=== PATIENT | male | born 1965 | race Caucasian/White ===

== ENCOUNTER 2020-08-05 13:18 | Emergency (ER) | payer OTHER, SELFPAY ==
[2020-08-05 13:30] VITALS: BP 127/77; PULSE 92; RESP 18; O2SAT 95; BMI 25.8
--- NOTE | 2020-08-05 13:38 | ECG_ITS ---
[facility] Test Date: 2020-08-05 Pat Name: Dk Ramos Department: Room: Gender: Male [employer] Work[employer]: : 1965 Requested By: Taylor Turner Order Number: [id number] Sara MD: Jose Alfredo Murrell M.D. Measurements Intervals [place] Rate: 80 P: 55 MN: 157 QRS: 68 QRSD: 104 T: 47 QT: 375 QTc: 435 Interpretive Statements SINUS RHYTHM POSSIBLE LEFT ATRIAL ENLARGEMENT [-0.1mV P WAVE IN V1/V2] NONSPECIFIC T-WAVE ABNORMALITY No previous ECG available for comparison Electronically Signed On 08-05-2020 17:04:18 CDT by Jose Alfredo Murrell M.D. [id number] f
--- NOTE | 2020-08-05 13:39 | W.ED.WEAKNES ---
HPI - Weakness General: Chief complaint: Weakness Stated complaint: WEAKNESS, NAUSEA Time Seen by Provider: 08/05/20 13:31 Source: patient Mode of arrival: EMS Limitations: no limitations History of Present Illness: HPI Narrative: Patient is a 54-year-old male who presents to the ED today for evaluation following an episode of weakness and nausea while at work. He states he works at [employer] and the area he was working was very warm. He was also wearing a heavy apron and admittingly had not drank much water the first half of the shift. Also states it is hard to breath wearing his mask. Patient states he began feeling tingling to his hands and feet and felt like his blood sugars were low-patient is not a diabetic. He states he felt sweaty, weak, and nauseous. He began drinking water and Mountain Dew and attempts to help his symptoms. Patient denies chest pain, shortness of breath, difficulty breathing, palpitations. No abdominal pain. No fevers. MD Complaint: generalized weakness, tingling and difficulty walking (nausea, sweaty) Onset (ago): hour(s) Duration: improved Location: other (bilateral hands/feet) Severity: mild Quality: tingling Associated symptoms: Reports no associated symptoms and nausea; Denies chest pain, chills, fever(s), headache(s), syncope or vomiting Review of Systems Const: Denies: fever(s), chills, body aches, fatigue or malaise Eyes: Denies: change in vision or blurry vision Card: Denies: chest pain, palpitations, irregular heart rhythm, edema, lightheadedness, syncope or pre-syncope Resp: Denies: dyspnea GI: Reports: nausea; Denies: abdominal pain, vomiting or diarrhea Musc: Denies: neck pain, back pain or joint pain Neuro: Reports: sensory changes (reports tingling to bilateral hands/feet); Denies: headache(s), numbness in extremities or weakness in extremities Physical Exam Const: COMMON NORMALS: no acute distress, average body habitus, patient oriented x3, no limitations, healthy appearing, alert and well nourished GENERAL APPEARANCE: cooperative ORIENTATION/CONSCIOUSNESS: Yes awake, Yes oriented to person, Yes oriented to place and Yes oriented to time HENMT: COMMON NORMALS: normocephalic and atraumatic HEAD & SCALP: normocephalic and atraumatic Eye: COMMON NORMALS: Equal, round and reactive pupils present and EOMs intact bilaterally GENERAL EYE: appearance normal, both eyes and all related structures PUPIL: Yes Equal, round and reactive pupils present Resp: COMMON NORMALS: normal respiratory effort and clear to auscultation bilaterally AUSCULTATION: clear to auscultation bilaterally Cardio: COMMON NORMALS: regular rate and regular rhythm RATE: regular rate RHYTHM: regular rhythm GI: COMMON NORMALS: Normal to inspection, nondistended, normoactive bowel sounds present, Soft to palpation, non-tender, No hepatosplenomegaly present and no masses PALPATION: Yes Soft to palpation and Yes No hepatosplenomegaly present Extremity: GENERAL: Yes normal exam except as noted Neuro: CHECO COMA SCALE: document GCS findings [place] coma scale eye opening: Spontaneous [place] coma scale verbal response: Orientated [place] coma scale motor response: Obey commands Che[place] coma scale total score: 15 COMMON NORMALS: patient oriented x3, CN's II-XII intact bilaterally, moves all extremities, no focal motor deficits and no sensory deficits noted SENSORIUM/ORIENTATION: Yes alert, Yes oriented to person, Yes oriented to place and Yes oriented to time COORDINATION/BALANCE: [id number] test normal SPEECH: speech normal MOTOR EXAM: 5/5 motor strength present throughout COORDINATION: [id number] test normal Skin: COMMON NORMALS: no rashes or lesions noted GENERAL SKIN EXAM: no rashes or lesions noted Course Vital Signs: Vital signs: Vital Signs Temperature 97.8 F 08/05/20 13:40 Pulse Rate 87 08/05/20 13:40 Respiratory Rate 17 08/05/20 13:40 Blood Pressure 127/77 08/05/20 13:40 Pulse Oximetry 100 08/05/20 13:40 MDM - Weakness MDM Narrative: Medical decision making narrative: Patient feels much better during his stay here. His vital signs are stable. EKG is normal. Labs (CBC, CMP, CPK, troponin) are nonconcerning. Potassium is mildly low at 3.3. He will be given a dose of oral potassium prior to discharge. Patient feels stable to go home. Recommend rest over the next 24 to 48 hours. Hydrate. Return to ED precautions were discussed. Lab Data: Labs: Lab Results 08/05/20 08/05/20 08/05/20 Range/Units 14:25 14:25 14:25 WBC 11.5 H (4.0-10.0) 10^3/ uL RBC 5.19 (4.1-5.3) 10^6/u L Hgb 15.2 (11.7-16.6) g/dL Hct 45.2 (42.0-52.0) % MCV 87.1 (80-94) fL MCH 29.3 (28.0-34.0) pg MCHC 33.6 (30.0-36.0) g/dL RDW 12.6 (12.1-15.1) % Plt Count 217 (130-400) 10^3/c mm MPV 11.9 H (7.4-10.4) fL Neut % (Auto) 84.0 % Lymph % (Auto) 7.0 % [place] % (Auto) 7.6 % Eos % (Auto) 0.3 % Baso % (Auto) 0.8 % Neut # (Auto) 9.68 H (1.8-7.7) 10^3/u L Lymph # (Auto) 0.8 (0.8-4.8) 10^3/u L [place] # (Auto) 0.9 (0.2-0.9) 10^3/u L Eos # (Auto) 0.0 (0.0-0.8) 10^3/u L Baso # (Auto) 0.1 (0.0-0.1) 10^3/u L Nucleated RBC % (a uto) 0 % Nucleated RBCs # 0.0 /100WBC Sodium 134 L (136-145) mmol/L Potassium 3.3 L (3.5-5.1) mmol/L Chloride 97 L (98-107) mmol/L Carbon Dioxide 24 (22-29) mmol/L Anion Gap 16.3 (5-19) BUN 15 (6-20) mg/dL Creatinine 0.8 (0.7-1.2) mg/dL GFR Calculation 100.4 (90-130) mL/min Glucose 92 (65-115) mg/dL Calculated Osmolal ity 278 L (285-295) mOsm/k g Calcium 9.0 (8.5-10.5) mg/dL Total Bilirubin 0.6 (0.15-1.2) mg/dL AST 20 (0-40) U/L ALT 16 (0-41) U/L Alkaline Phosphata se 66 (40-130) IU/L Creatine Kinase 187 (39-308) U/L Troponin T Gen 5 n g/L 6 (0-15) ng/L Total Protein 7.3 (6.6-8.7) g/dL Albumin 4.7 (3.5-5.2) g/dL Globulin 2.6 (1.3-4.6) g/dL EKG Data^: EKG 1: EKG interpretation date: 08/05/20 EKG interpretation time: 14:01 Interpretation: Sinus rhythm Rate [address] elevation or depression changes noted Signed off by Dr. Spivey Discharge Plan Discharge Patient Disposition: Home Clinical Impression: Heat exhaustion Qualifiers: Encounter type: initial encounter Qualified Code(s): T67.5XXA - Heat exhaustion, unspecified, initial encounter Condition: Stable Prescriptions: No Action No Known Home Medications RF: 0 Discharge Orders: Discharge ED (Routine); Ordered 08/05/20 Ordered By: Taylor Turner Patient Instructions: Heat Exhaustion - Adult, Heat Exhaustion (ED) Coding Level of Care Code ED Pediatric Pathologist for Claire Fwd Exam Comprehensive
[2020-08-05 13:40] VITALS: BP 127/77; PULSE 87; RESP 17; TEMP 36.6; O2SAT 100
--- NOTE | 2020-08-05 14:09 | PC.NURSE ---
pt to MRI with shc at this time
[2020-08-05] MEDS: promethazine 25 mg/mL SDV 1 mL 50 MG IM (14:30)
[2020-08-05 14:40] VITALS: RESP 18
[2020-08-05 14:41] LABS: Basophils # 0.1 10^3/uL (0.0-0.1); Basophils % 0.8 %; Eosinophils % 0.3 %; Hematocrit 45.2 % (42.0-52.0); Hemoglobin 15.2 g/dL (11.7-16.6); Lymphocytes # 0.8 10^3/uL (0.8-4.8); Mean Corpuscular HGB Conc 33.6 g/dL (30.0-36.0); Mean Corpuscular Hemoglobin 29.3 pg (28.0-34.0); Mean Corpuscular Volume 87.1 fL (80-94); Mean Platelet Volume 11.9 fL (7.4-10.4); Monocytes # 0.9 10^3/uL (0.2-0.9); Monocytes % 7.6 %; Neutrophils # 9.68 10^3/uL (1.8-7.7); Nucleated Red Blood Cells % 0 %; Platelet Count 217 10^3/cmm (130-400); Red Blood Count 5.19 10^6/uL (4.1-5.3); Red Cell Distribution Width 12.6 % (12.1-15.1); White Blood Count 11.5 10^3/uL (4.0-10.0)
[2020-08-05 15:08] LABS: Alanine Aminotransferase 16 U/L (0-41); Albumin Level 4.7 g/dL (3.5-5.2); Alkaline Phosphatase 66 IU/L (40-130); Anion Gap 16.3 (5-19); Aspartate Amino Transferase 20 U/L (0-40); Blood Urea Nitrogen 15 mg/dL (6-20); Carbon Dioxide 24 mmol/L (22-29); Chloride 97 mmol/L (98-107); Creatine Phosphokinase 187 U/L (39-308); Globulin 2.6 g/dL (1.3-4.6); Glomerular Filtration Rate 100.4 mL/min (90-130); Glucose 92 mg/dL (65-115); Osmolality Calculated 278 mOsm/kg (285-295); Potassium 3.3 mmol/L (3.5-5.1); Sodium 134 mmol/L (136-145); Total Bilirubin 0.6 mg/dL (0.15-1.2); Total Protein 7.3 g/dL (6.6-8.7)
[2020-08-05 15:09] LABS: Troponin T (5th) Once 6 ng/L (0-15)
[2020-08-05] MEDS: potassium chloride ER 20 mEq Tablet 40 MEQ PO (15:41)
[2020-08-05 15:51] VITALS: RESP 18
== END 2020-08-05 15:51 | disposition home or self-care (01) ==
PROVIDERS: Emergency Provider Physician Assistant
DX: T67.5XXA Heat exhaustion, unspecified, initial encounter (principal); X30.XXXA Exposure to excessive natural heat, initial encounter; Y99.0 Civilian activity done for income or pay
CPT/HCPCS: 80053; 82550; 84484; 85025; 93005; 96372; 99283; J2550

== ENCOUNTER 2022-02-11 14:07 | Outpatient (CLI) | payer OTHER, SELFPAY ==
--- NOTE | 2022-02-11 14:30 | MR_ITS ---
WS: [id number] MRI HEAD WITHOUT CONTRAST TECHNIQUE: Sagittal T1, T2 axial, T2 axial FLAIR, axial and coronal T1 images, axial susceptibility w eighted imaging, axial diffusion weighted images, and coronal T2 images were obtained. CLINICAL INFORMATION: R41.3 - Other amnesia COMPARISON: None. FINDINGS: No evidence of restricted diffusion to suggest acute ischemia. Ventricular system and basal cisterns are patent. Mild small vessel changes. Small vessel changes in the donald. Moderate parenchymal volume loss. Incidental cavum septum pellucidum and vergae. Normal posterior fossa. Normal vascular flow voi ds at the skull base. No extra-axial fluid collections. No evidence of mass or mass effect. Retention cyst LEFT maxillary sinus. Normal posterior nasopharynx. Mastoid air cells are well aerated . Incidental partially empty sella. No hemosiderin on the susceptibly weighted images. Normal optic chiasm and pituitary infundibulum. Normal cavernous sinuses and Meckel's cave. Moderate symmetric atrophy temporal lobes and hippocampal formations. MR/MR head wo con* [id number] IMPRESSION: 1. No evidence of restricted diffusion to suggest acute ischemia. 2. Mild small vessel changes. Moderate parenchymal volume loss. 3. Incidental cavum septum pellucidum and vergae. 4. Retention cyst LEFT maxillary sinus measuring 2.3 cm. Mastoid air cells are well aerated. 5. Moderate symmetric atrophy temporal lobes and hippocampal formations. 6. No hemosiderin on the susceptibly weighted images.
== END 2022-02-11 14:08 | disposition home or self-care (01) ==
LOC: RAD 14:08
PROVIDERS: PCP Family Medicine; Visit Provider Specialist
DX: R41.3 Other amnesia (principal); J34.1 Cyst and mucocele of nose and nasal sinus
CPT/HCPCS: 70551; 82607; 85651

== ENCOUNTER 2023-03-02 15:35 | Outpatient (CLI) | payer OTHER, SELFPAY ==
--- NOTE | 2023-03-02 16:00 | MR_ITS ---
WS: [id number] MRI BRAIN WITHOUT CONTRAST HISTORY: G30.9 - Alzheimer's disease, unspecified COMPARISON: 02/11/2022 TECHNIQUE: Diffusion imaging, multiplanar T1, T2 and FLAIR imaging obtained. No evidence for restricted diffusion to suggest acute ischemia. No hemorrhage. Mild small vessel ischemic changes. There are additional small vessel ischemic changes in the donald. N o interval development of an acute infarct since the prior study. Taking into consideration's the sli ght difference in positioning of the head I do not believe there is a significant increase in the sma ll vessel ischemic disease. Ventricles are mildly prominent. Incidental note is made of a cavum of septum pellucidum et vergae. Moderate symmetric atrophy. There is also moderate atrophy of the hippocampal formations and temporal lobes. There does appear to be slightly greater atrophy as compared to 02/11/2022. Increased CSF elizabeth rounding the hippocampi. Empty sella turcica. No inferior displacement of the cerebellar tonsils. Dural venous sinuses and [place] demonstrate no abnormality on this unenhanced studies. Paranasal sinuses: Mucous retention cyst in the LEFT maxillary sinus. Mastoid air cells: Normal. Calvarium and scalp: Intact. IMPRESSION: 1. No acute infarct. 2. Mild small vessel ischemic disease is similar to the prior study. No prior infarcts. 3. Moderate parenchymal volume loss is similar to prior studies. 4. Moderate atrophy of the hippocampal formations. There does appear to be slightly greater CSF surr ounding the hippocampi as compared to the prior study suggesting progression of atrophy. 5. Mild ventriculomegaly.
== END 2023-03-02 15:36 | disposition home or self-care (01) ==
LOC: RAD 15:35
PROVIDERS: PCP Family Medicine; Visit Provider Specialist
DX: G30.9 Alzheimer's disease, unspecified (principal); F02.80 Dementia in other diseases classified elsewhere, unspecified severity, without behavioral disturbance, psychotic disturbance, mood disturbance, and anxiety; I67.89 Other cerebrovascular disease; G31.89 Other specified degenerative diseases of nervous system; G93.89 Other specified disorders of brain
CPT/HCPCS: 70551

== ENCOUNTER 2024-03-26 18:06 | Emergency (ER) | payer OTHER, SELFPAY ==
[2024-03-26 18:09] VITALS: BP 156/95; PULSE 66; RESP 18; TEMP 36.7; O2SAT 100
--- NOTE | 2024-03-26 18:18 | CTR_ITS ---
PROCEDURE INFORMATION: Exam: CT Head Without Contrast Exam date and time: 03/26/2024 6:19 PM Age: 58 years old Clinical indication: Stroke-like symptoms; Generalized weakness; Additional info: Acute stroke symptoms TECHNIQUE: Imaging protocol: Computed tomography of the head without contrast. Radiation optimization: All CT scans at this facility use at least one of these dose optimization techniques: automated exposure control; mA and/or kV adjustment per patient size (includes targeted exams where dose is matched to clinical indication); or iterative reconstruction. Other technique: STROKE PROTOCOL was implemented. COMPARISON: MR head wo con* [id number] 03/02/2023 4:24 PM RADIATION DOSE METRICS: Total DLP (mGy-cm): 1098.08 FINDINGS: Brain: Mild volume loss of the brain is unchanged. No acute infarct. No acute hemorrhage. No midline shift or mass effect. Cerebral ventricles: There is diffuse prominence of the ventricles with bifrontal horn diameter of 5.7 cm larger than previous measurement of 5.2 cm. Cavum septum pellucidum et vergae is unchanged. Pituitary gland and sella: Unchanged partially empty sella. Paranasal sinuses: No significant inflammation. No fluid levels. Mastoid air cells: No significant inflammation. Bones: No acute fracture. Soft tissues: Unremarkable. CT/CT head thrombolytic [id number] IMPRESSION: 1. No evidence of acute ischemia. 2. Progressive diffuse ventriculomegaly disproportionate to the overall degree of cerebral volume loss raising the possibility of normal pressure hydrocephalus in the appropriate clinical setting. ASSESSMENT: ASPECTS ([place] Stroke Program Early CT Score) is 10.
--- NOTE | 2024-03-26 18:20 | XRR_ITS ---
PROCEDURE INFORMATION: Exam: XR Chest Exam date and time: 03/26/2024 6:36 PM Age: 58 years old Clinical indication: Other: Confusion; Additional info: Weakness TECHNIQUE: Imaging protocol: Radiologic exam of the chest. Views: 1 view. COMPARISON: CT angio headneck* [id number] 03/26/2024 6:29 PM FINDINGS: Lungs: Mild hypoinflation of the lungs. Minimal bibasilar atelectasis. No focal infiltrate. Pleural spaces: No pleural effusion. No pneumothorax. Heart/Mediastinum: Mild apparent cardiomegaly likely reflecting magnification from hypoinflation. Bones/joints: Unremarkable. XR/XR chest 1V portable [id number] IMPRESSION: No acute findings.
--- NOTE | 2024-03-26 18:20 | CTR_ITS ---
PROCEDURE INFORMATION: Exam: CTA Head With Contrast, Arteriography Exam date and time: 03/26/2024 6:29 PM Age: 58 years old Clinical indication: Stroke-like symptoms; Altered mental status/memory loss; Additional info: Possible stroke TECHNIQUE: Imaging protocol: Computed tomographic angiography of the head with contrast. Exam focused on the arteries. 3D rendering (Not supervised by radiologist): MIP and/or 3D reconstructed images were created by the technologist. Radiation optimization: All CT scans at this facility use at least one of these dose optimization techniques: automated exposure control; mA and/or kV adjustment per patient size (includes targeted exams where dose is matched to clinical indication); or iterative reconstruction. Contrast material: OMNI 350; Contrast volume: 100 ml; Contrast route: INTRAVENOUS (IV); COMPARISON: CT head thrombolytic [id number] 03/26/2024 6:19 PM RADIATION DOSE METRICS: Total DLP (mGy-cm): 543.62 FINDINGS: ANTERIOR CIRCULATION: Right internal carotid artery: Intracranial segment is patent with no significant stenosis. No aneurysm. Right middle cerebral artery: No occlusion or significant stenosis. No aneurysm. Right anterior cerebral artery: No occlusion or significant stenosis. No aneurysm. Anterior communicating artery: Suspected 2 mm superiorly projecting aneurysm at the level of the anterior communicating artery on series 5, image 273. Left internal carotid artery: Intracranial segment is patent with no significant stenosis. No aneurysm. Left middle cerebral artery: No occlusion or significant stenosis. No aneurysm. Left anterior cerebral artery: No occlusion or significant stenosis. No aneurysm. POSTERIOR CIRCULATION: Right vertebral artery: No occlusion or significant stenosis. No aneurysm. Left vertebral artery: No occlusion or significant stenosis. No aneurysm. Basilar artery: No occlusion or significant stenosis. No aneurysm. Right posterior cerebral artery: The right OUTSIDE SALES REPRESENTATIVE has anatomic variant origin. Left posterior cerebral artery: No occlusion or significant stenosis. No aneurysm. Brain: No definite mass, mass effect, or midline shift. Cerebral ventricles: Diffuse ventriculomegaly again present disproportionate to the overall degree of cerebral volume loss. Paranasal sinuses: Scattered paranasal sinus mucosal thickening, without air-fluid level present. Bones/joints: No acute fracture. Soft tissues: Unremarkable. PROCEDURE INFORMATION: Exam: CTA Neck With Contrast Exam date and time: 03/26/2024 6:29 PM Age: 58 years old Clinical indication: Stroke-like symptoms; Altered mental status/memory loss; Additional info: Possible stroke TECHNIQUE: Imaging protocol: Computed tomographic angiography of the neck with contrast. Exam focused on the cervical segments of the vasculature. 3D rendering (Not supervised by radiologist): MIP and/or 3D reconstructed images were created by the technologist. Radiation optimization: All CT scans at this facility use at least one of these dose optimization techniques: automated exposure control; mA and/or kV adjustment per patient size (includes targeted exams where dose is matched to clinical indication); or iterative reconstruction. Contrast material: OMNI 350; Contrast volume: 100 ml; Contrast route: INTRAVENOUS (IV); COMPARISON: CT head thrombolytic [id number] 03/26/2024 6:19 PM RADIATION DOSE METRICS: Total DLP (mGy-cm): 543.62 FINDINGS: Right common carotid artery: No stenosis. No dissection or occlusion. Right internal carotid artery: No stenosis of the extracranial segment. No dissection or occlusion. Right external carotid artery: No visible occlusion. Left common carotid artery: No stenosis. No dissection or occlusion. Left internal carotid artery: No stenosis of the extracranial segment. No dissection or occlusion. Left external carotid artery: No visible occlusion. Right vertebral artery: No stenosis. No dissection or occlusion. Left vertebral artery: No stenosis. No dissection or occlusion. Soft tissues: No significant soft tissue swelling. Bones/joints: No acute fracture. CT/CT angio headneck* [id number] IMPRESSION: 1. No acute large vessel occlusion identified. 2. 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 IMPRESSION: No occlusion or significant stenosis. REFERENCES: NASCET CRITERIA. The degree of stenosis in the cervical segment of the internal carotid artery is based on NASCET criteria. Normal is no stenosis. Mild is less than 50% stenosis. Moderate is 50-69% stenosis. Severe is 70% to 99% stenosis. Total occlusion is no detectable patent lumen.
--- NOTE | 2024-03-26 18:21 | ED_ITS ---
HPI - Altered Mental Status 2 General: Chief Complaint: Altered Mental Status Stated Complaint: ams, confusion History of Present Illness: 58-year-old man who presents the emergen cy room by ambulance and with police. Apparently he was stopped tonight for a driving infraction. At that point he demonstrated some erratic driving behavior according to the police. He was having difficulty with word finding and some sort of word salad. There was concern that he might have had a stroke. He does not have any visual deficits. No slurred speech just difficulty with word finding. No focal motor deficits. No chest pain. No shortness of breath. Related Data Home Medications Medication Instructions Recorded Confirmed arginine 1,000 mg-B12 16.6 1 tab PO BID 11/01/23 03/08/24 mcg-folic acid 66.6 mcg-B6 3.3 mg tablet (L-Arginine [facility]) Previous Rx's Medication Instructions Recorded citalopram 40 mg tablet 40 mg PO DAILY #30 tabs 11/01/23 galantamine 4 mg tablet 4 mg PO BID #60 tabs 11/01/23 memantine 10 mg tablet 10 mg PO BID #60 tabs 11/01/23 quetiapine 100 mg tablet See Rx Instructions .Route 02/28/24 .COMPLEX #120 tabs Allergies Allergy/AdvReac Type Severity Reaction Status Date / Time No Known Allergies Allergy Verified 11/01/23 15:27 Review of Systems 2 Narrative: Constitutional symptoms: Negative except as documented in HPI. Skin symptoms: Negative except as documented in HPI. Eye symptoms: Negative except as documented in HPI. ENMT symptoms: Negative except as documented in HPI. Respiratory symptoms: Negative except as documented in HPI. Cardiovascular symptoms: Negative except as documented in HPI. Gastrointestinal symptoms: Negative except as documented in HPI. Genitourinary symptoms: Negative except as documented in HPI. Musculoskeletal symptoms: Negative except as documented in HPI. Neurologic symptoms: Negative except as documented in HPI. Psychiatric symptoms: Negative except as documented in HPI. Endocrine symptoms: Negative except as documented in HPI. PFSH ED 2 PFSH: Social History Smoking and tobacco/nicotine status: never used tobacco/nicotine Physical Exam 2 Narrative: General: Alert, no acute distress. Skin: Warm, dry. Head: Normocephalic, atraumatic. Neck: Supple, trachea midline. Eye: Extraocular movements are intact. Ears, nose, mouth and throat: mucosa moist. Cardiovascular: Regular, Normal peripheral perfusion. Respiratory: Lungs are clear to auscultation, respirations are non-labored, breath sounds are equal, Symmetrical chest wall expansion. Gastrointestinal: Soft, Nontender, Non distended Musculoskeletal: Normal ROM, no deformity. Neurological: Alert and oriented, patient has difficulty with word finding and expressing himself. When asking how many fingers I am holding up he gets the answers wrong. No obvious visual field deficits. After discussing this with his apparently this is his baseline Psychiatric: Cooperative, appropriate mood & affect. Course 2 Vital Signs: Vital signs: Vital Signs Temperature 98.0 F 03/26/24 18:09 Pulse Rate 66 03/26/24 20:44 Respiratory Rate 12 03/26/24 20:44 Blood Pressure 158/81 03/26/24 20:44 Pulse Oximetry 98 03/26/24 20:44 Oxygen Delivery Me thod Room Air 03/26/24 20:44 MDM - Altered Mental Status Medical Decision Making Medical decision making: Differential diagnosis for patient with focal neurologic deficit(s) includes but not limited to and based on the above HPI, review of systems and physical exam: ischemic stroke, hemorrhagic stroke and embolic stroke secondary to atrial fibrillation), TIA, Henley's palsey, metabolic encephalopathy with previous stroke. Orders placed to evaluate differential diagnosis based on the above differential, HPI and physical exam Consultation: I spoke with Dr. Sanchez initially before I spoke with the and she had recommended tPA if these were new symptoms. Concerned that they might be because he had been at work. However after discussing this with the and then after Dr. Sanchez had reviewed the chart and who the patient was it was discovered that this is his baseline and that the worsening in his word salad was secondary to his anxiety after being pulled over. is very concerned about his driving and this is not the first time she has expressed this concern. EKG: Time 1840. Rate 68. Normal sinus rhythm, No ST-T changes, no ectopy, normal WA & QRS intervals, This was reviewed and interpreted by myself the ER physician at 1845 Lab Review: Laboratory results were reviewed and interpreted by myself the emergency room physician. Lab work is unremarkable. No leukocytosis. No anemia. No renal failure. Urinalysis is negative. No drugs. No alcohol. CT head: No acute intracranial process. no intracranial hemorrhage, no evidence of infarct. no evidence of acute fracture.This was reviewed and interpreted by myself the ER physician. CTA of the head and neck: No obvious stenosis or occlusions are identified. No mass. This was reviewed and interpreted by myself the emergency room physician. I also reviewed the radiology report. Chest x-ray: No acute process. No infiltrate. No pneumothorax. This was reviewed and interpreted by myself the emergency room physician. I also reviewed the radiology report. I reviewed the patient's medical record. Reexamination: Patient remained stable. No increased work of breathing. No altered mental status. No focal motor deficits. Patient is at his baseline. His speech has improved some now that he is not as anxious. I discussed with him and that I cannot take his license away but I strongly urged that he cease from driving at this point. agrees. Assessment and plan: Speech difficulty Alzheimer's disease - Discharged home - Discussed findings and plan with patient. Answered any questions. - All laboratory values were reviewed and interpreted personally by myself, the ER physician - All imaging was reviewed and interpreted personally by myself, the ER physician. - Evaluation and treatment of this problem were appropriate in the emergency setting Lab Data 03/26/24 18:42 03/26/24 18:[address] 03/26/24 18:18 IMPRESSION: 1. No evidence of acute ischemia. 2. Progressive diffuse ventriculomegaly disproportionate to the overall degree of cerebral volume loss raising the possibility of normal pressure hydrocephalus in the appropriate clinical setting. ASSESSMENT: ASPECTS ([place] Stroke Program Early CT Score) is 10. Chest X-Ray 03/26/24 18:20 IMPRESSION: No acute findings. Head/Neck CTA 03/26/24 18:20 IMPRESSION: 1. No acute large vessel occlusion identified. 2. 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 IMPRESSION: No occlusion or significant stenosis. REFERENCES: NASCET CRITERIA. The degree of stenosis in the cervical segment of the internal carotid artery is based on NASCET criteria. Normal is no stenosis. Mild is less than 50% stenosis. Moderate is 50-69% stenosis. Severe is 70% to 99% stenosis. Total occlusion is no detectable patent lumen. Laboratory Results WBC 7.38 10^3/uL (3.29-11.43) 03/26/24 18:42 RBC 5.15 10^6/uL (3.85-5.65) 03/26/24 18:42 Hgb 15.20 g/dL (11.27-16.99) 03/26/24 18:42 Hct 45.1 % (37-53) 03/26/24 18:42 MCV 87.6 fl (82-101) 03/26/24 18:42 MCH 29.5 pg (27-33) 03/26/24 18:42 MCHC 33.7 g/dL (30-55) 03/26/24 18:42 RDW 12.9 % (12.1-15.1) 03/26/24 18:42 Plt Count 260 10^3/cmm (157-399) 03/26/24 18:42 MPV 11.0 fL (7.4-10.4) H 03/26/24 18:42 Neut % (Auto) 58.1 % 03/26/24 18:42 Lymph % (Auto) 29.7 % 03/26/24 18:42 [place] % (Auto) 9.1 % 03/26/24 18:42 Eos % (Auto) 1.5 % 03/26/24 18:42 Baso % (Auto) 1.5 % 03/26/24 18:42 Neut # (Auto) 4.29 10^3/uL (1.8-7.7) 03/26/24 18:42 Lymph # (Auto) 2.2 10^3/uL (0.8-4.8) 03/26/24 18:42 [place] # (Auto) 0.7 10^3/uL (0.2-0.9) 03/26/24 18:42 Eos # (Auto) 0.1 10^3/uL (0.0-0.8) 03/26/24 18:42 Baso # (Auto) 0.1 10^3/uL (0.0-0.1) 03/26/24 18:42 Nucleated RBC % (auto) 0 % 03/26/24 18:42 Nucleated RBCs # 0.0 /100WBC 03/26/24 18:42 PT 12.80 SECONDS (12.1-14.9) 03/26/24 18:42 INR 0.93 (0.8-1.2) 03/26/24 18:42 APTT 27.6 SECONDS (23.9-36.7) 03/26/24 18:42 Sodium 139 mmol/L (136-145) 03/26/24 18:42 Potassium 3.6 mmol/L (3.5-5.1) 03/26/24 18:42 Chloride 102 mmol/L (98-107) 03/26/24 18:42 Carbon Dioxide 25 mmol/L (22-29) 03/26/24 18:42 Anion Gap 15.6 (5-19) 03/26/24 18:42 BUN 18 mg/dL (6-20) 03/26/24 18:42 Creatinine 0.9 mg/dL (0.7-1.2) 03/26/24 18:42 GFR Calculation 86.4 mL/min (90-130) L 03/26/24 18:42 Glucose 90 mg/dL (65-115) 03/26/24 18:42 Calculated Osmolality 289 mOsm/kg (285-295) 03/26/24 18:42 Calcium 9.4 mg/dL (8.5-10.5) 03/26/24 18:42 Total Bilirubin 0.5 mg/dL (0.15-1.2) 03/26/24 18:42 AST 25 U/L (0-40) 03/26/24 18:42 ALT 22 U/L (0-41) 03/26/24 18:42 Alkaline Phosphatase 78 U/L (40-130) 03/26/24 18:42 Ammonia 22 umol/L (16-60) 03/26/24 18:42 Total Protein 7.7 g/dL (6.6-8.7) 03/26/24 18:42 Albumin 4.8 g/dL (3.5-5.2) 03/26/24 18:42 Globulin 2.9 g/dL (1.3-4.6) 03/26/24 18:42 Urine Color Yellow (Yellow) 03/26/24 20:14 Urine Appearance Clear (CLEAR) 03/26/24 20:14 Urine pH 6.5 (5-7) 03/26/24 20:14 Ur Specific [place] 1.060 (1.005-1.030) H 03/26/24 20:14 Urine Protein Negative (Negative) 03/26/24 20:14 Urine Glucose (UA) Negative (Normal) 03/26/24 20:14 Urine Ketones Negative (Negative) 03/26/24 20:14 Urine Blood Negative (Negative) 03/26/24 20:14 Urine Nitrate Negative (Negative) 03/26/24 20:14 Urine Bilirubin Negative (Negative) 03/26/24 20:14 Urine Urobilinogen 1.0 mg/dL (Negative) 03/26/24 20:14 Ur Leukocyte Esterase Negative (Negative) 03/26/24 20:14 Urine RBC 0-2 /hpf (0-2) 03/26/24 20:14 Urine WBC 0-5 /hpf (0-5) 03/26/24 20:14 Ur Squamous Epith Cells 0-5 /hpf (0-5) 03/26/24 20:14 Amorphous Sediment Not Reportable 03/26/24 20:14 Urine Bacteria None seen /hpf (NONE) 03/26/24 20:14 Hyaline Casts 0.40 /lpf 03/26/24 20:14 Urine Sperm 1+ /hpf 03/26/24 20:14 Urine Opiates Screen Negative ng/mL (Negative) 03/26/24 20:14 Ur Barbiturates Screen Negative ng/mL (Negative) 03/26/24 20:14 Ur Phencyclidine Scrn Negative ng/mL (Negative) 03/26/24 20:14 Ur Amphetamines Screen Negative ng/mL (Negative) 03/26/24 20:14 U Benzodiazepines Scrn Negative ng/mL (Negative) 03/26/24 20:14 Urine Cocaine Screen Negative ng/mL (Negative) 03/26/24 20:14 U Marijuana (THC) Screen Negative ng/mL (Negative) 03/26/24 20:14 Ethyl Alcohol < 10 mg/dL (0-10) 03/26/24 18:42 All radiology interpretation(s) finalized by discharge Discharge Plan Discharge Patient Disposition: Home Clinical Impression: Alzheimer disease Condition: Stable Prescriptions: No Action L-Arginine [facility] 1,000 mg-16.6 mcg-66.6 mcg tablet 1 tab PO BID galantamine 4 mg tablet 4 mg PO BID Qty: 60 11RF Rx Instructions: administer with AM and PM meals memantine 10 mg tablet 10 mg PO BID Qty: 60 11RF Rx Instructions: after the first month citalopram 40 mg tablet 40 mg PO DAILY Qty: 30 11RF quetiapine 100 mg tablet See Rx Instructions .ROUTE .COMPLEX Qty: 120 0RF Dose Instruction: TAKE 1 TO 2 TABLETS BY MOUTH TWICE DAILY Rx Instructions: TAKE 1 TO 2 TABLETS BY MOUTH TWICE DAILY Discharge Orders: Discharge ED (Routine); Ordered 03/26/24 Ordered By: Amanda Rankin Referrals: Rigoberto Benitez [Primary Care Provider] - Discharge Diet: Usual diet Patient Instructions: Altered Mental Status (ED), Opioid Safety, Pain Management Activity Restrictions/Additional Instructions: No driving until you are cleared by neurology or by your primary provider. Thank you for choosing [facility] for your healthcare needs today. Please realize this is an emergency room and that we are providing you with a medical screening exam and this may not be complete and all inclusive of all the testing and or work up that you may need to determine your ailment or severity of your illness. You have been screened and evaluated and felt safe for discharge. Health conditions do change or evolve sometimes and as such it is important that you follow up with your Primary Doctor to be re checked, 3-5 days is a general good time frame for follow up. You are always welcome to return to the ED for re assessment if your symptoms are worsening or you have new concerns Coding Level of Care Code ED Conference Manager for Claire Hutchinson
[2024-03-26] MEDS: iohexol 350 mg/mL 500 mL Btl (per mL) IV (18:36)
--- NOTE | 2024-03-26 18:41 | ECG_ITS ---
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
[2024-03-26 18:46] LABS: Basophils # 0.1 10^3/uL (0.0-0.1); Basophils % 1.5 %; Eosinophils # 0.1 10^3/uL (0.0-0.8); Eosinophils % 1.5 %; Hematocrit 45.1 % (37-53); Lymphocytes # 2.2 10^3/uL (0.8-4.8); Lymphocytes % 29.7 %; Mean Corpuscular HGB Conc 33.7 g/dL (30-55); Mean Corpuscular Hemoglobin 29.5 pg (27-33); Mean Corpuscular Volume 87.6 fl (82-101); Monocytes # 0.7 10^3/uL (0.2-0.9); Monocytes % 9.1 %; Neutrophils # 4.29 10^3/uL (1.8-7.7); Neutrophils % 58.1 %; Nucleated Red Blood Cells % 0 %; Platelet Count 260 10^3/cmm (157-399); Red Blood Count 5.15 10^6/uL (3.85-5.65); Red Cell Distribution Width 12.9 % (12.1-15.1); White Blood Count 7.38 10^3/uL (3.29-11.43)
[2024-03-26 18:50] VITALS: BP 171/147; PULSE 78; RESP 16; O2SAT 100
[2024-03-26 18:56] LABS: INR 0.93 (0.8-1.2)
[2024-03-26 18:57] LABS: Partial Thromboplastin Time 27.6 SECONDS (23.9-36.7)
[2024-03-26 19:01] LABS: Alanine Aminotransferase 22 U/L (0-41); Albumin Level 4.8 g/dL (3.5-5.2); Alkaline Phosphatase 78 U/L (40-130); Anion Gap 15.6 (5-19); Aspartate Amino Transferase 25 U/L (0-40); Blood Urea Nitrogen 18 mg/dL (6-20); Calcium 9.4 mg/dL (8.5-10.5); Carbon Dioxide 25 mmol/L (22-29); Chloride 102 mmol/L (98-107); Creatinine Clr Calc Pharmacy 94.4395; Globulin 2.9 g/dL (1.3-4.6); Glomerular Filtration Rate 86.4 mL/min (90-130); Glucose 90 mg/dL (65-115); Osmolality Calculated 289 mOsm/kg (285-295); Potassium 3.6 mmol/L (3.5-5.1); Sodium 139 mmol/L (136-145); Total Bilirubin 0.5 mg/dL (0.15-1.2); Total Protein 7.7 g/dL (6.6-8.7)
[2024-03-26 19:05] LABS: Alcohol Level < 10 mg/dL (0-10)
[2024-03-26 19:09] LABS: Ammonia 22 umol/L (16-60)
[2024-03-26 20:24] LABS: Bilirubin Urine Negative (Negative); Blood Urine Negative (Negative); Glucose Urine UA Negative (Normal); Ketones Urine Negative (Negative); Leukocyte Esterase Urine Negative (Negative); Nitrate Urine Negative (Negative); Protein Urine Negative (Negative); Urine Appearance Clear (CLEAR); Urine Color Yellow (Yellow); pH Urine 6.5 (5-7)
[2024-03-26 20:29] LABS: Bacteria Urine None Seen /hpf; RBC Urine 0-2 /hpf (0-2); Squamous Epithelial Cell Urine 0-5 /hpf (0-5); WBC Urine 0-5 /hpf (0-5)
[2024-03-26 20:32] LABS: Amphetamines Screen Urine Negative (Negative); Barbiturates Screen Urine Negative (Negative); Benzodiazepines Screen Urine Negative (Negative); Cocaine Screen Urine Negative (Negative); Opiate Screen Urine Negative (Negative); PCP Screen Urine Negative (Negative); THC Screen Urine Negative (Negative)
[2024-03-26 20:42] LABS: Sperm Urine 1+ /hpf
[2024-03-26 20:43] LABS: Add Urine Culture? No
[2024-03-26 20:44] VITALS: BP 158/81; PULSE 66; RESP 12; O2SAT 98
[2024-03-26 21:30] VITALS: BP 142/94; PULSE 63; RESP 14; O2SAT 96
[2024-03-28 12:08] LABS: Glucose Point of Care 76 mg/dL (70-110)
== END 2024-03-26 21:31 | disposition home or self-care (01) ==
PROVIDERS: Emergency Provider Emergency Medicine; PCP Family Medicine
DX: G30.9 Alzheimer's disease, unspecified (principal); F02.80 Dementia in other diseases classified elsewhere, unspecified severity, without behavioral disturbance, psychotic disturbance, mood disturbance, and anxiety
CPT/HCPCS: 36416; 70450; 70496; 70498; 71045; 80053; 80306; 80307; 81001; 82140; 82962; 85025; 85610; 85730; 93005; 99285